=== PATIENT | male | born 1960 | race Hispanic/Latino ===

== ENCOUNTER 2021-04-13 11:38 | Emergency (ER) | payer MEDICAID ==
[2021-04-13] MEDS ORDERED: IBUPROFEN 800 MG TAB PO ONE (11:44)
--- NOTE | 2021-04-13 11:45 | Emergency Department Report ---
ED ENT HPI - General Stated complaint: SPIDER BITE ON EAR - History of Present Illness Initial comments: Patient presents by ambulance secondary to left ear pain. He woke up this morning and noticed left ear pain. He believes he was bitten by a spider. He did not actually see a spider or any other insect for that matter. He is complaining of a constant aching pain in the left ear. This is 10 out of 10. The pain radiates into the left neck. He states that the pain is worse with movement and palpation. There is no other trauma noted. He has had no fevers or chills per there is no cough congestion. Has not noticed a change in his hearing. He has had no water activities lately. Patient states that he has not been on antibiotics lately. He did not take anything for pain prior to calling an ambulance. - Related Data Previous Rx's Medication Instructions Recorded Last Taken Type Amoxicillin/K Clav Tab [Augmentin 1 tab PO Q12HR #14 tab 04/13/21 Unknown Rx 875 mg] Ibuprofen [Motrin] 800 mg PO Q8HR PRN #20 tablet 04/13/21 Unknown Rx Allergies Allergy/AdvReac Type Severity Reaction Status Date / Time haloperidol [From Haldol] Allergy Unknown Verified 07/25/15 06:50 haloperidol lactate Allergy Unknown Verified 07/25/15 06:50 [From Haldol] ED Dental HPI - General Stated complaint: SPIDER BITE ON EAR - Related Data Previous Rx's Medication Instructions Recorded Last Taken Type Amoxicillin/K Clav Tab [Augmentin 1 tab PO Q12HR #14 tab 04/13/21 Unknown Rx 875 mg] Ibuprofen [Motrin] 800 mg PO Q8HR PRN #20 tablet 04/13/21 Unknown Rx Allergies Allergy/AdvReac Type Severity Reaction Status Date / Time haloperidol [From Haldol] Allergy Unknown Verified 07/25/15 06:50 haloperidol lactate Allergy Unknown Verified 07/25/15 06:50 [From Haldol] ED Review of Systems ROS: Stated complaint: SPIDER BITE ON EAR Other details as noted in HPI Comment: All other systems reviewed and negative Constitutional: denies: fever Eyes: denies: vision change ENT: as per HPI Respiratory: denies: cough Cardiovascular: denies: chest pain Endocrine: denies: unexplained weight loss Gastrointestinal: denies: abdominal pain Genitourinary: denies: dysuria Musculoskeletal: denies: back pain Skin: denies: rash Neurological: denies: headache Hematological/Lymphatic: denies: easy bruising ED Past Medical Hx - Surgical History Additional Surgical History: knee sx x 3, multiple neck sx - Social History Smoking Status: Current Every Day Smoker Substance Use Type: None - Medications Home Medications: Home Medications Medication Instructions Recorded Confirmed Last Taken Type Amoxicillin/K Clav Tab [Augmentin 1 tab PO Q12HR #14 tab 04/13/21 Unknown Rx 875 mg] Ibuprofen [Motrin] 800 mg PO Q8HR PRN #20 tablet 04/13/21 Unknown Rx ED Physical Exam - General Limitations: No Limitations, Other ( Pulse ox noted and normal per EMS) General appearance: alert, in no apparent distress - Head Head exam: Present: atraumatic, normocephalic - Eye Eye exam: Present: normal appearance, EOMI. Absent: scleral icterus - ENT ENT exam: Present: mucous membranes moist, TM's normal bilaterally, other ( erythema involving the left ear canal with a single puncture wound noted to the lateral aspect and inferior portion of the pinna. There is warmth and tenderness involving the pinna and the inferior portion of the ear canal.This does not extend into the ear canal.) - Neck Neck exam: Present: normal inspection. Absent: tenderness, lymphadenopathy - Respiratory Respiratory exam: Present: normal lung sounds bilaterally. Absent: respiratory distress - Cardiovascular Cardiovascular Exam: Present: regular rate, normal rhythm - GI/Abdominal GI/Abdominal exam: Present: soft. Absent: distended, tenderness - Extremities Exam Extremities exam: Present: normal capillary refill - Back Exam Back exam: Present: full ROM - Neurological Exam Neurological exam: Present: alert, oriented X3, normal gait. Absent: motor sensory deficit - Psychiatric Psychiatric exam: Present: normal affect, normal mood - Skin Skin exam: Present: warm, dry ED Course Vital Signs 04/13/21 12:21 Temperature 98.9 F Pulse Rate 92 H Respiratory 18 Rate Blood Pressure 133/78 [Right] O2 Sat by Pulse 99 Oximetry - Reevaluation(s) Reevaluation #1: 04/13/21 11:45 EMS was met upon arrival. Old records reviewed. Reevaluation #2: 04/13/21 12:45 Antibiotics were ordered and the patient was discharged ED Medical Decision Making - Medical Decision Making patient presents with reports of a possible spider bite to his left ear. He does have an cellulitis with evidence of a chondritis involving the left pinna. This does not extend into the ear canal. This is not consistent with otitis externa. He has evidence more of a cellulitis. Patient was treated with Augmentin for the concern for chondritis. He was given analgesics and referred for outpatient follow-up. Tetanus booster was up-to-date according to his history. There was no evidence of mastoid tenderness. He has no evidence of cellulitis extending into the neck. There is no evidence of otitis media or perforation. Critical Care Time: No Critical care attestation.: If time is entered above; I have spent that time in minutes in the direct care of this critically ill patient, excluding procedure time. ED Disposition Clinical Impression: Cellulitis of left ear Chondritis of auricle Qualifiers: Laterality: left Qualified Code(s): H61.032 - Chondritis of left external ear Disposition: HOME / SELF CARE / HOMELESS Is pt being admited?: No Condition: Stable Instructions: Cellulitis, Adult Additional Instructions: Apply warm compresses. Drink plenty water. Return for problems. Take your home medications as usual. Return for any concerns otherwise. Prescriptions: Amoxicillin/K Clav Tab [Augmentin 875 mg] 1 tab PO Q12HR #14 tab Ibuprofen [Motrin] 800 mg PO Q8HR PRN #20 tablet PRN Reason: Pain, Mild (1-3) Referrals: PRIMARY MD JAILYN [Primary Care Provider] - 3-5 Days BALJINDER JOY MD [Staff Physician] - 3-5 Days
[2021-04-13 12:22] VITALS: BP 133/78
[2021-04-13] MEDS ORDERED: AMOXICILLIN/K CLAV 875/125MG TAB PO ONE (12:44)
== END 2021-04-13 19:00 | disposition home or self-care (01) ==
LOC: ED 11:38
DX: H60.12 Cellulitis of left external ear (principal); H61.032 Chondritis of left external ear; F17.200 Nicotine dependence, unspecified, uncomplicated; Z98.890 Other specified postprocedural states; Z88.8 Allergy status to other drugs, medicaments and biological substances; Z79.899 Other long term (current) drug therapy
CPT/HCPCS: 99283

== ENCOUNTER 2021-07-11 02:27 | Emergency (ER) | payer MEDICAID ==
[2021-07-11 02:51] VITALS: BP 178/96
== END 2021-07-11 04:31 | disposition left against medical advice (07) ==
LOC: ED 02:27
DX: R07.89 Other chest pain (principal); Z53.21 Procedure and treatment not carried out due to patient leaving prior to being seen by health care provider

== ENCOUNTER 2021-07-11 04:38 | Observation (INO) | payer MEDICAID ==
[2021-07-11 04:45] VITALS: BP 178/88
--- NOTE | 2021-07-11 06:51 | XRay Report ---
CHEST 2 VIEWS INDICATION / CLINICAL INFORMATION: chest pain. COMPARISON: None available. FINDINGS: SUPPORT DEVICES: None. HEART / MEDIASTINUM: No significant abnormality. LUNGS / PLEURA: No significant pulmonary or pleural abnormality. No pneumothorax. ADDITIONAL FINDINGS: No significant additional findings. IMPRESSION: 1. No active cardiopulmonary disease. Signer Name: Idris Bright II, MD Signed: 07/11/2021 6:46 AM Workstation Name: [id number]
[2021-07-11 06:54] LABS: Basophils % (Auto) 0.9 % (0.0-1.8); Eosinophils # (Auto) 0.1 K/mm3 (0.0-0.4); Eosinophils % (Auto) 5.3 % (0.0-4.3); Hematocrit 38.1 % (35.5-45.6); Hemoglobin 12.4 gm/dl (11.8-15.2); Lymphocytes % (Auto) 37.2 % (13.4-35.0); Mean Corpuscular HGB Conc 33 % (32-34); Mean Corpuscular Volume 97 fl (84-94); Monocytes # (Auto) 0.3 K/mm3 (0.0-0.8); Monocytes % (Auto) 10.3 % (0.0-7.3); Platelet Count 152 K/mm3 (140-440); Red Blood Count 3.93 M/mm3 (3.65-5.03); Red Cell Distribution Width 16.1 % (13.2-15.2)
[2021-07-11 07:12] LABS: Alanine Aminotransferase 25 units/L (7-56); BUN/Creatinine Ratio 14; Blood Urea Nitrogen 11 mg/dL (9-20); Calcium 8.4 mg/dL (8.4-10.2); Hemolysis Index 32
--- NOTE | 2021-07-11 08:22 | Emergency Department Report ---
ED Chest Pain HPI - General Chief Complaint: Chest Pain Stated Complaint: SUB STERNAL CHEST PAIN Time Seen by Provider: 07/11/21 07:28 Source: EMS Mode of arrival: Stretcher Limitations: No Limitations - History of Present Illness Initial Comments: 61-year-old male with a past medical history hypertension, CHF, PTSD, homelessness presents to the hospital complaining of mid chest pain x1 day. 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 Cannot recall the names of his medication. He denies shortness of breath, nausea, vomiting, or diaphoresis - Related Data Previous Rx's Medication Instructions Recorded Last Taken Type Amoxicillin/K Clav Tab [Augmentin 1 tab PO Q12HR #14 tab 04/13/21 Unknown Rx 875 mg] Ibuprofen [Motrin] 800 mg PO Q8HR PRN #20 tablet 04/13/21 Unknown Rx Allergies Allergy/AdvReac Type Severity Reaction Status Date / Time haloperidol [From Haldol] Allergy Unknown Verified 07/25/15 06:50 haloperidol lactate Allergy Unknown Verified 07/25/15 06:50 [From Haldol] Heart Score - HEART Score History: Slightly suspicious EKG: Non-specific Age: 45-65 Risk factors: > 3 risk factors or hx of atherosclerotic disease Troponin: < normal limit HEART Score: 4 - EKG Read Time Time EKG Completed: 08:04 EKG Read Time: 08:12 ED Review of Systems ROS: Stated complaint: SUB STERNAL CHEST PAIN Other details as noted in HPI Comment: All other systems reviewed and negative ED Past Medical Hx - Past Medical History Hx Hypertension: Yes Hx Congestive Heart Failure: Yes Additional medical history: PTSD - Surgical History Additional Surgical History: knee sx x 3, multiple neck sx - Social History Smoking Status: Current Every Day Smoker Substance Use Type: None - Medications Home Medications: Home Medications Medication Instructions Recorded Confirmed Last Taken Type Amoxicillin/K Clav Tab [Augmentin 1 tab PO Q12HR #14 tab 04/13/21 Unknown Rx 875 mg] Ibuprofen [Motrin] 800 mg PO Q8HR PRN #20 tablet 04/13/21 Unknown Rx ED Physical Exam - General Limitations: No Limitations - Other Other exam information: General: No acute distress Head: Atraumatic Eyes: normal appearance ENT: Moist mucous membranes Neck: Normal appearance, no midline tenderness Chest: Clear to auscultation bilaterally CV: Regular rate and rhythm Abdomen: Soft, normal bowel sounds, nontender, nondistended, no rebound or guarding Back: Normal inspection Extremity: Normal inspection, full range of motion, no calf tenderness or leg edema Neuro: Alert O x 3, no facial asymmetry, speech clear, no gross motor sensory deficit Psych: Appropriate behavior Skin: No rash ED Course Vital Signs 07/11/21 07/11/21 04:44 10:09 Temperature 98.3 F Pulse Rate 102 H Respiratory 18 18 Rate Blood Pressure 178/88 [Left] O2 Sat by Pulse 98 98 Oximetry KELLY score - Kelly Score Age > 65: (0) No Aspirin use within the Past 7 Days: (0) No 3 or more CAD Risk Factors: (1) Yes 2 or more Angina events in past 24 hrs: (1) Yes Known CAD with more than 50% Stenosis: (0) No Elevated Cardiac Markers: (0) No ST Deviation Greater than 0.5mm: (0) No KELLY Score: 2 ED Medical Decision Making - Lab Data Result diagrams: 07/11/21 06:47 07/11/21 06:47 Lab Results 07/11/21 07/11/21 Range/Units 06:47 06:47 WBC 2.8 L (4.5-11.0) K/mm3 RBC 3.93 (3.65-5.03) M/mm3 Hgb 12.4 (11.8-15.2) gm/dl Hct 38.1 (35.5-45.6) % MCV 97 H (84-94) fl MCH 32 (28-32) pg MCHC 33 (32-34) % RDW 16.1 H (13.2-15.2) % Plt Count 152 (140-440) K/mm3 Lymph % (Auto) 37.2 H (13.4-35.0) % [place] % (Auto) 10.3 H (0.0-7.3) % Eos % (Auto) 5.3 H (0.0-4.3) % Baso % (Auto) 0.9 (0.0-1.8) % Lymph # (Auto) 1.0 L (1.2-5.4) K/mm3 [place] # (Auto) 0.3 (0.0-0.8) K/mm3 Eos # (Auto) 0.1 (0.0-0.4) K/mm3 Baso # (Auto) 0.0 (0.0-0.1) K/mm3 Seg Neutrophils % 46.3 (40.0-70.0) % Seg Neutrophils # 1.3 L (1.8-7.7) K/mm3 Sodium 144 (137-145) mmol/L Potassium 4.0 (3.6-5.0) mmol/L Chloride 104.1 (98-107) mmol/L Carbon Dioxide 27 (22-30) mmol/L Anion Gap 17 mmol/L BUN 11 (9-20) mg/dL Creatinine 0.8 (0.8-1.3) mg/dL Estimated GFR > 60 ml/min BUN/Creatinine Ratio 14 % Glucose 79 (75-100) mg/dL Calcium 8.4 (8.4-10.2) mg/dL Total Bilirubin 0.30 (0.1-1.2) mg/dL AST 48 H (5-40) units/L ALT 25 (7-56) units/L Alkaline Phosphatase 77 (35-129) units/L Troponin T < 0.010 (0.00-0.029) ng/mL Total Protein 6.6 (6.3-8.2) g/dL Albumin 4.0 (3.9-5) g/dL Albumin/Globulin Ratio 1.5 % - EKG Data -: EKG Interpreted by Ma EKG shows normal: sinus rhythm, intervals (Prolonged QTC 529), QRS complexes (Prolonged QRS duration 124), ST-T waves (No ST elevation FL) Rate: normal (Rate 85) - EKG Data When compared to previous EKG there are: previous EKG unavailable - Radiology Data Radiology results: report reviewed CHEST 2 VIEWS INDICATION / CLINICAL INFORMATION: chest pain. COMPARISON: None available. FINDINGS: SUPPORT DEVICES: None. HEART / MEDIASTINUM: No significant abnormality. LUNGS / PLEURA: No significant pulmonary or pleural abnormality. No pneumothorax. ADDITIONAL FINDINGS: No significant additional findings. IMPRESSION: 1. No active cardiopulmonary disease. - Medical Decision Making 61-year-old male with chest pain with noncompliant with medications and several cardiac risk factors. Prolonged QTC noted. UDS and magnesium added to current orders. Initial troponin negative. No signs of ischemia on initial EKG. No previous cardiac work-up on file. Unclear cardiac history with surgery performed at [facility] in the past. Hospitalist to admit. Initially Dr tierney was supposed to but I was afraid that patient was to be admitted to Dr. Jameson Critical Care Time: No Critical care attestation.: If time is entered above; I have spent that time in minutes in the direct care of this critically ill patient, excluding procedure time. ED Disposition Clinical Impression: Chest pain, Medically noncompliant Disposition: 09 ADMITTED INPATIENT Is pt being admited?: Yes Condition: Stable Time of Disposition: 08:25 (Dr Holcomb/hosptialist/ [place])
[2021-07-11] MEDS ORDERED: ASPIRIN 325 MG TAB PO ONE (08:25)
--- NOTE | 2021-07-11 10:02 | Electrocardiograph Report ---
[facility] Test Date: 2021-07-11 Test Time: 08:03:02 Pat Name: LILLI JAY Department: Room: Gender: M Color Mixer: HANNA WALDROPB: 1960 Requested By: WILLI TERAN Order Number: [id number] Reading MD: Sebas Griffin Measurements Intervals [place] Rate: 82 P: 78 WY: 219 QRS: 71 QRSD: 125 T: 83 QT: 443 QTc: 518 Interpretive Statements Incomplete analysis due to missing data in precordial lead(s) Sinus rhythm Borderline prolonged [place] interval Nonspecific intraventricular conduction delay No previous ECG available for comparison Electronically Signed On 07-11-2021 10:02:21 EST by Sebas Griffin
[2021-07-11] MEDS ORDERED: ACETAMINOPHEN 325 MG TAB PO ONE (11:29)
[2021-07-11] MEDS ORDERED: ONDANSETRON 4 MG/2 ML INJ IV PRN (11:30)
[2021-07-11] MEDS ORDERED: SODIUM CHLORIDE 0.9% 1000 ML 1,000 ML IV SCH (11:30)
[2021-07-11] MEDS ORDERED: ACETAMINOPHEN 325 MG TAB PO PRN (11:30)
[2021-07-11] MEDS ORDERED: oxyCODONE /ACETAMINOPHEN 5-325MG TAB PO PRN (11:30)
--- NOTE | 2021-07-11 11:30 | Electrocardiograph Report ---
[facility] Test Date: 2021-07-11 Test Time: 08:04:01 Pat Name: LILLI JAY Department: Room: Gender: M [place] Sheriff: HANNA WALDROPB: 1960 Requested By: BIBI TITUS Order Number: [id number] Reading MD: Sebas Griffin Measurements Intervals [place] Rate: 85 P: 78 WY: 210 QRS: 73 QRSD: 124 T: 82 QT: 444 QTc: 529 Interpretive Statements Sinus rhythm Nonspecific intraventricular conduction delay Compared to ECG 07/11/2021 08:03:02 No significant changes Electronically Signed On 07-11-2021 11:30:20 EST by Sebas Griffin
[2021-07-11] MEDS ORDERED: HEPARIN 5,000 UNIT/1 ML VIAL SUB-Q SCH (11:45)
[2021-07-11] MEDS ORDERED: FAMOTIDINE 20 MG TAB PO SCH (12:00)
== END 2021-07-11 15:00 | disposition left against medical advice (07) ==
LOC: ED 04:38 → 4A 11:30
PROVIDERS: ADMIT Internal Medicine; ATTEND Internal Medicine
DX: I24.9 Acute ischemic heart disease, unspecified (principal); R07.89 Other chest pain; I11.0 Hypertensive heart disease with heart failure; I50.9 Heart failure, unspecified; F43.10 Post-traumatic stress disorder, unspecified; Z59.00 Homelessness unspecified; Z91.14 Patient's other noncompliance with medication regimen
CPT/HCPCS: 36415; 71046; 80053; 83735; 84484; 85025; 93005; 93010; 99285; G0378